=== PATIENT | male | born 1965 | race Caucasian/White ===

== ENCOUNTER 2017-10-22 14:30 | Emergency (ER) | payer OTHER ==
[2017-10-22 14:49] VITALS: BP 143/74
--- NOTE | 2017-10-22 15:30 | RAD ---
HISTORY: Left hand pain and swelling, trauma COMPARISONS: None VIEWS: 4, Frontal, lateral, and oblique views of the left hand FINDINGS: BONE DENSITY: Normal. BONES: There is no displaced fracture. JOINTS: There is no arthropathy. ALIGNMENT: There is no dislocation. SOFT TISSUES: Unremarkable. OTHER FINDINGS: None. IMPRESSION: NO ACUTE OSSEOUS INJURY. IF SYMPTOMS PERSIST, RECOMMEND REPEAT IMAGING.
--- NOTE | 2017-10-22 16:09 | UC ---
Head Injury HPI - HPI Summary HPI Summary: 51 yo WM p/w left hand pain and swelling x 2 weeks associated with hitting it against car bumper while working with a tool. Dorsum of hand was swollen and while the swelling improved, now has numbness and tingling on left 2nd and 3rd digits - History Of Current Complaint Chief Complaint: UCUpperExtremity Stated Complaint: SWELLING LEFT HAND Time Seen by Provider: 10/22/17 15:26 Severity Initially: Mild Character: Dull, Throbbing Aggravating Factor(s): Nothing Alleviating Factor(s): Nothing - Risk Factors SDH Risk Factor: Recent Trauma - Allergies/Home Medications Allergies/Adverse Reactions: Allergies Allergy/AdvReac Type Severity Reaction Status Date / Time No Known Allergies Allergy Verified 10/22/17 14:48 Home Medications: Home Medications NK [No Home Medications Reported] 10/22/17 [History Confirmed 10/22/17] PMH/Surg Hx/FS Hx/Imm Hx - Surgical History Surgical History: None - Family History Known Family History: Positive: None - Pt denies - Social History Alcohol Use: Occasionally Substance Use Type: None Smoking Status (MU): Never Smoked Tobacco Review of Systems Constitutional: Negative Skin: Negative Eyes: Negative ENT: Negative Respiratory: Negative Cardiovascular: Negative Gastrointestinal: Negative Genitourinary: Negative Motor: Negative Neurovascular: Negative Musculoskeletal: Edema, Other: - left hand swelling and changes in sensation Neurological: Negative Psychological: Negative All Other Systems Reviewed And Are Negative: Yes Physical Exam Triage Information Reviewed: Yes Vital Signs: Initial Vital Signs Temp 36.9 C 10/22/17 14:45 Pulse 81 10/22/17 14:45 Resp 12 10/22/17 14:45 BP 143/74 10/22/17 14:45 Pulse Ox 98 10/22/17 14:45 Vital Signs Reviewed: Yes Eye Exam: Normal ENT Exam: Normal Dental Exam: Normal Neck exam: Normal Neck: Positive: 1 Respiratory Exam: Normal Cardiovascular Exam: Normal Abdominal Exam: Normal Musculoskeletal: Positive: Edema @ - Left dorsal surface swollen and ecchymotic but appears reduced over the left 2 weeks, mild TTP over 2nd and 3rd prox phalanx with mild numbness and tingling, NVI, ROM intact, no tendon deficits, FDP and FDS fx intact Neurological Exam: Normal Psychological Exam: Normal Skin Exam: Normal Head Injury Course/Dx - Course Course Of Treatment: XR shows of left hand shows possible prox phalanx fracture of 2nd and 3rd digits, Dr Zelaya radiologist disagrees but due to new numbness and tingling referred pt to Dr Lozoya- saad - Differential Dx/Diagnosis Provider Diagnoses: Hand swelling and finger fracture Discharge - Discharge Plan Condition: Stable Disposition: HOME Patient Education Materials: Finger Fracture (ED), Hand Sprain (ED) Referrals: Douglas Clemens MD [Primary Care Provider] - Cholo Lozoya MD [Medical Doctor] - Additional Instructions: please f/u with Dr lozoya- ortho PATRICIO
== END 2017-10-22 16:15 | disposition home or self-care (01) ==
LOC: UCEAST 14:30
DX: S62.618A Displaced fracture of proximal phalanx of other finger, initial encounter for closed fracture (principal); W22.8XXA Striking against or struck by other objects, initial encounter; Y93.89 Activity, other specified; Y92.9 Unspecified place or not applicable
CPT/HCPCS: 99212; G0463